=== PATIENT | female | born 1945 | race Caucasian/White ===

== ENCOUNTER 2016-02-27 13:27 | Emergency (ER) | payer OTHER, MEDICARE ==
[2016-02-27 13:32] VITALS: RESP 20
--- NOTE | 2016-02-27 14:55 | CPEKG ---
Heart Rate: 69 RR Interval: 870 P-R Interval: 192 QRSD Interval: 118 QT Interval: 416 QTC Interval: 446 P Edmond: 46 QRS Edmond: -53 T Wave Edmond: 58 EKG Severity - ABNORMAL ECG - EKG Impression: SINUS RHYTHM EKG Impression: INCOMPLETE LEFT BUNDLE BRANCH BLOCK EKG Impression: LEFT VENTRICULAR HYPERTROPHY Electronically Signed By: Dilia Osborn 27-Feb-2016 21:53:05
[2016-02-27] MEDS ORDERED: AZITHROMYCIN IV 500 MG in D5W 250 ML IV ONE (15:04)
--- NOTE | 2016-02-27 15:07 | EDPHY ---
H & P Time Seen by Provider: 02/27/16 14:26 HPI/ROS: CHIEF COMPLAINT: I am sick. HISTORY OF PRESENT ILLNESS: Patient is a 70-year-old male who presents to the emergency department with the flu. Patient states that she has had a stressful last week. Her initially had diverticular bleed. Her return to the emergency department last night was admitted for pneumonia. She feels that she has been sick since 02/18/2016. She developed a cough and bronchitis type symptoms. She was concerned that she had the flu. She was feeling run down and fatigued. She has a cough productive of green sputum. She has increasing shortness of breath. She has mild chest tightness that is diffuse. She has no leg pain or swelling. No nausea or vomiting. No abdominal pain. No dysuria or frequency. REVIEW OF SYSTEMS: My complete review of systems is negative except as mentioned in the HPI. Past Medical/Surgical History: Includes arthritis, hypothyroidism, reflux, hypertension, chronic bronchitis, diabetes Includes: Hysterectomy, cholecystectomy, shoulder surgery, hernia repair, "partial knee replacement" Social History: The patient smokes. She denies drugs or alcohol. Smoking Status: Light smoker Physical Exam: Vitals noted. 36.5, 152/108, 100, 20, 94% on room GENERAL: No acute distress, alert. HEENT: Eyes normal to inspection, normal pharynx, no signs of dehydration. NECK: No thyromegaly, no lymphadenopathy, supple. RESPIRATORY: Clear to auscultation bilaterally, no rales, rhonchi or wheezing. CVS: Regular rate and rhythm, no rubs, murmurs, or gallops. ABDOMEN: Soft, nontender, nondistended, no organomegaly. BACK: Normal to inspection, no CVA tenderness. SKIN: Normal color, no rash, warm, dry. No pallor. EXTREMITIES: No pedal edema, no calf tenderness, no Homans sign or cords, no joint swelling. NEURO/PSYCH: Alert and oriented x3, normal mood and affect Constitutional: Initial Vital Signs Temperature (C) 36.5 C 02/27/16 13:28 Heart Rate 100 02/27/16 13:28 Respiratory Rate 20 02/27/16 13:28 Blood Pressure 152/108 H 02/27/16 13:28 O2 Sat (%) 94 02/27/16 13:28 O2 Delivery Mode Room Air O2 (L/minute) 3 Allergies/Adverse Reactions: ciprofloxacin [From Cipro] Allergy (Intermediate, Verified 09/09/15 17:51) hydromorphone HCl [From Dilaudid] Allergy (Unknown, Verified 09/09/15 17:51) Unknown bupropion HCl [From Wellbutrin] Allergy (Verified 09/09/15 17:51) ciprofloxacin HCl [From Cipro] Allergy (Verified 09/09/15 17:51) codeine [Codeine] Allergy (Verified 09/09/15 17:51) levofloxacin [From Levaquin] Allergy (Verified 09/09/15 17:51) FLU LIKE SX metformin Allergy (Verified 09/09/15 17:51) minocycline [Minocycline] Allergy (Verified 09/09/15 17:51) nitrofurantoin [From Macrobid] Allergy (Verified 09/09/15 17:51) nitrofurantoin macrocrystalline [From Macrobid] Allergy (Verified 09/09/15 17:51 ) potassium clavula *RETIRED-11/06/11 [From Augmentin] Allergy (Verified 11/18/13 22:11) EXTREME DROWSINESS sulfamethoxazole Allergy (Verified 06/24/13 14:44) Home Medications: Medication Instructions Recorded Albuterol Hfa Anes Only [Proair 2 puffs IH QID 09/09/15 Hfa Icu (*)] DILTIAZEM HCL [DILTIAZEM 24HR ER] 180 mg PO 09/09/15 Fluticasone Nasal [Flonase Nasal 2 sprays NASAL DAILY 09/09/15 [place] (RX)] Herbals/Supplements -Info Only 1 ea PO 09/09/15 Hydrocodone/Acetaminophen 09/09/15 [Hydrocodon-Acetaminophen 5-325] Levoxyl 09/09/15 Naproxen 375 mg PO BID 09/09/15 Omeprazole [Prilosec 20 mg] 20 mg PO DAILY 09/09/15 traMADol 09/09/15 Azithromycin 250 mg PO DAILY #4 tablet 02/27/16 Spironolactone 02/27/16 Medical Decision Making ED Course/Re-evaluation: In the emergency department an IV was placed. The patient had laboratory studies, chest x-ray and EKG were performed. Based on the patient's presentation symptoms she was given azithromycin 500 mg IV after blood cultures were drawn. The patient has numerous allergies to medications. Sinus rhythm at 69. Incomplete left bundle-branch block. Left ventricular hypertrophy. No ST or T-wave abnormalities. This EKG is abnormal as read by me. Patient's laboratory studies were were noted. White count is normal. Chemistry panel unremarkable. Chest x-ray: The patient is noted to have an early pneumonia in the left lower lobe I discussed results with the patient. I answered all her questions. I paged Dr. Bello. Patient was given azithromycin as noted above Dr. Bello is aware. Discussed this with the patient. She was adamant that she did not want to come into the hospital. Discussed the reasoning for recommending admission with pneumonia. I explained her diagnosis. After answering all her questions patient did not want to come to the hospital. Dr. Bello saw the patient she refused admission to him as well. Patient was given warnings prior to leaving. She is given a prescription for azithromycin instructed on use. She will return with worsening symptoms. Differential Diagnosis: My differential includes but is not limited to pneumonia, bronchitis, bacteremia , sepsis, dehydration, fatigue, electrolyte abnormality, sugar abnormality, ACS , acute OK - Data Points Laboratory Results: Laboratory Results 02/27/16 15:00 02/27/16 15:00 02/27/16 15:00 WBC 9.39 10^3/uL (3.80-9.50) RBC 4.50 10^6/uL (4.18-5.33) Hgb 14.7 g/dL (12.6-16.3) Hct 44.0 % (38.0-47.0) MCV 97.8 fL (81.5-99.8) MCH 32.7 pg (27.9-34.1) MCHC 33.4 g/dL (32.4-36.7) RDW 13.4 % (11.5-15.2) Plt Count 184 10^3/uL (150-400) MPV 10.9 fL (8.7-11.7) Neut % (Auto) 74.5 H % (39.3-74.2) Lymph % (Auto) 15.7 % (15.0-45.0) [place] % (Auto) 9.2 % (4.5-13.0) Eos % (Auto) 0.1 L % (0.6-7.6) Baso % (Auto) 0.3 % (0.3-1.7) Nucleat RBC Rel Count 0.0 % (0.0-0.2) Absolute Neuts (auto) 7.00 H 10^3/uL (1.70-6.50) Absolute Lymphs (auto) 1.47 10^3/uL (1.00-3.00) Absolute Monos (auto) 0.86 H 10^3/uL (0.30-0.80) Absolute Eos (auto) 0.01 L 10^3/uL (0.03-0.40) Absolute Basos (auto) 0.03 10^3/uL (0.02-0.10) Absolute Nucleated RBC 0.00 10^3/uL (0-0.01) Immature Gran % 0.2 % (0.0-1.1) Immature Gran # 0.02 10^3/uL (0.00-0.10) PT 12.3 SEC (12.0-15.0) INR 0.92 (0.83-1.16) APTT 26.9 SEC (23.0-38.0) VBG Lactic Acid 1.5 mmol/L (0.7-2.1) Sodium 144 mEq/L (134-144) Potassium 4.7 mEq/L (3.5-5.2) Chloride 105 mEq/L (97-110) Carbon Dioxide 27 mEq/l (22-31) Anion Gap 12 mEq/L (8-16) BUN 37 H mg/dL (7-23) Creatinine 0.7 mg/dL (0.6-1.0) Estimated GFR > 60 Glucose 132 H mg/dL (70-100) Calcium 10.1 mg/dL (8.5-10.4) Total Bilirubin 0.6 mg/dL (0.1-1.4) Troponin I 0.014 ng/mL (0-0.034) TSH 0.347 L uIU/mL (0.465-4.680) Medications Given: Discontinued Medications Azithromycin 500 mg/ Dextrose 255 mls @ 255 mls/hr IV EDNOW ONE PRN Reason: Protocol Stop: 02/27/16 16:03 Last Admin: 02/27/16 15:45 Dose: 255 mls Departure - Departure Disposition: Home, Routine, Self-Care Clinical Impression: Shortness of breath Left lower lobe pneumonia Qualifiers: Pneumonia type: due to unspecified organism Qualifier Code: (J18.1) Lobar pneumonia, unspecified organism Condition: Good
[2016-02-27 15:13] LABS: % IMMATURE GRANULYOCYTES 0.2 % (0.0-1.1); ABSOLUTE IMMATURE GRANULOCYTES 0.02 10^3/uL (0.00-0.10); ADD DIFF? NO; ADD MORPH? NO; ADD SCAN? NO; ATYPICAL LYMPHOCYTE FLAG 10 (0-99); FRAGMENT RBC FLAG 0 (0-99); HEMOGLOBIN 14.7 g/dL (12.6-16.3); LEFT SHIFT FLG 0 (0-99); LIPEMIA HEMOLYSIS FLAG 80 (0-99); MEAN CELL HEMOGLOBIN 32.7 pg (27.9-34.1); MEAN CELL HEMOGLOBIN CONCENTR. 33.4 g/dL (32.4-36.7); MEAN CELL VOLUME 97.8 fL (81.5-99.8); MEAN PLATELET VOLUME 10.9 fL (8.7-11.7); PLATELET CLUMPS FLAG 0 (0-99); PLATELET COUNT 184 10^3/uL (150-400); RED CELL DISTRIBUTION WIDTH 13.4 % (11.5-15.2)
--- NOTE | 2016-02-27 15:16 | DX ---
Chest PA Upright and Lateral Views - February 27, 2016, at 2:21 p.m. Clinical History: 70-year-old female resenting to the Emergency Department with shortness of breath, a cough, and a fever for 8 days. Rule out pneumonia. Comparison Study: Chest, dated October 02, 2014. Findings: Bilateral shoulder arthroplasties are present. A metallic necklace is in place, and there are telemetry monitoring lead lines. The cardiac size is within normal limits. There is mild central perihilar bronchial wall thickening. There is some subsegmental atelectasis versus an early infiltrat e in the posteromedial left lower lobe. There is no pleural effusion, peripheral interstitial edema, or pneumothorax. The thoracic vertebral body heights are maintained, and there are multilevel degener ative changes. Impression: Mild perihilar bronchitis with some subsegmental atelectasis versus a possible early inf iltrate in the posteromedial left lower lobe.
[2016-02-27 15:22] LABS: INR 0.92 (0.83-1.16); PROTIME(PATIENT) 12.3 SEC (12.0-15.0)
[2016-02-27 15:23] LABS: ANION GAP 12 mEq/L (8-16); APTT 26.9 SEC (23.0-38.0); BILIRUBIN,TOTAL 0.6 mg/dL (0.1-1.4); CALCIUM 10.1 mg/dL (8.5-10.4); CARBON DIOXIDE 27 mEq/l (22-31); CHLORIDE 105 mEq/L (97-110); CREATININE 0.7 mg/dL (0.6-1.0); GLOMERULAR FILTRATION RATE > 60; GLUCOSE 132 mg/dL (70-100); POTASSIUM 4.7 mEq/L (3.5-5.2); SODIUM 144 mEq/L (134-144)
[2016-02-27 15:35] LABS: TROPONIN I 0.014 ng/mL (0-0.034)
[2016-02-27 17:02] VITALS: BP 132/77; PULSE 78; TEMP 98.4; O2SAT 94
--- NOTE | 2016-02-27 20:26 | GCON ---
[f rep st] CONSULTATION HOSPITALIST CONSULTATION. REFERRING PHYSICIAN: Dilia Osborn MD REASON FOR CONSULTATION: Hospital admission for pneumonia. HISTORY OF PRESENT ILLNESS: This is a 70-year-old female whose was hospitalized yesterday fo r pneumonia and influenza. Presented to the emergency department today with worsening cough. The pa ivan tells me that she developed what she described as cold-like symptoms on February 17. Since t hen she has continued to have a cough that is sometimes productive with grayish-green sputum. Denies any fevers or chills. She has been having some shortness of breath, which brought her into the [facility] department today for further evaluation. PAST MEDICAL HISTORY: 1. Hypothyroidism. 2. Hypertension. 3. Degenerative joint disease. 4. Bronchitis. PAST SURGICAL HISTORY: Cholecystectomy, hysterectomy, right shoulder replacement, breast biopsy, her matthieu repair, left shoulder replacement, partial left knee replacement. MEDICATIONS: Reviewed. Refer to [employer] for details. ALLERGIES: The patient has multiple medication allergies. Refer to [employer] for details. SOCIAL HISTORY: The patient smokes occasionally. She drinks alcohol occasionally. She denies any i llicit drug use. FAMILY HISTORY: Reviewed and noncontributory. REVIEW OF SYSTEMS: Comprehensive 10-point review of systems was done and was negative, except for as mentioned in the HPI. PHYSICAL EXAM: VITAL SIGNS: Blood pressure 132/77, pulse 78, respiratory rate 20, O2 saturation 94% on room air. GENERAL: No acute distress. HEAD: Normocephalic atraumatic. HEART: S1, S2. LUNGS : Clear. No wheezes, rales, or rhonchi. Slight diminished breath sounds in bilateral bases. ABDOM EN: Soft, nontender, nondistended. No guarding or rebound tenderness. Normoactive bowel sounds. E XTREMITIES: No clubbing or cyanosis. NEURO: Cranial nerves 2-12 grossly intact. No focal motor or sensory deficits. DIAGNOSTICS: Chest x-ray showed mild perihilar bronchitis, with some subsegmental atelectasis versus possible early infiltrate in the posterior medial left lower lobe. WBC is 9.39, hemoglobin 14.7, he matocrit 44, platelets 184. Chemistry: Sodium 144, potassium 4.7, chloride 105, CO2 27, BUN 37, cre atinine 0.7, glucose 132. Troponin within normal limits. TSH mildly suppressed at 0.0347. ASSESSMENT AND PLAN: This is a 70-year-old female whose was recently diagnosed with influenz a and pneumonia, who presented to the hospital with general malaise with cough and shortness of breat h, most likely due to recovering influenza versus early pneumonia seen on chest x-ray. PLAN: I was asked by Dr. Osborn to admit the patient to the hospital. After examining the patient I informed the patient that I was planning on admitting her, when she adamantly refused. Given the p atient's overall picture I think it is reasonable for her to be managed as an outpatient. I discusse d the case with Dr. Osborn, who plans to discharge her on azithromycin. Given her multiple allergie s to medications this seems appropriate. The patient was instructed to seek medical attention if her condition worsens or if she develops any worsening shortness of breath or fevers. The patient was n ot tested for influenza; however, she seems to be recovering since her influenza symptoms seem to hav e started over a week ago. /[id number]/MODL
== END 2016-02-27 17:18 | disposition home or self-care (01) ==
LOC: UNDOADMOB 15:34
DX: J18.1 Lobar pneumonia, unspecified organism (principal); I10 Essential (primary) hypertension; E11.9 Type 2 diabetes mellitus without complications; F17.200 Nicotine dependence, unspecified, uncomplicated
CPT/HCPCS: 71020; 93005; 96365; 99285; J0456

== ENCOUNTER → 2017-02-09 | Outpatient (CLI) | payer OTHER, MEDICARE | LOC: BMCIMAGING 13:17 | PROVIDERS: ATTEND Internal Medicine | DX: Z12.31 Encounter for screening mammogram for malignant neoplasm of breast (principal) | CPT/HCPCS: G0202 ==

== ENCOUNTER → 2017-07-20 | Outpatient (CLI) | payer OTHER, MEDICARE | LOC: BHFA 13:00 | PROVIDERS: ATTEND Internal Medicine | DX: E78.00 Pure hypercholesterolemia, unspecified (principal); I10 Essential (primary) hypertension ==

== ENCOUNTER 2017-08-02 05:39 | Inpatient (IN) | payer OTHER, MEDICARE ==
[2017-08-02] MEDS ORDERED: ACETAMINOPHEN 500 MG TAB PO ONE (06:12)
[2017-08-02] MEDS ORDERED: ceFAZolin 2 GM/DEXTROSE 100 ML IV ONE (06:12)
[2017-08-02] MEDS ORDERED: morphINE PF 0.2 MG in SYRINGE INTRATHECAL 1 SYR IT ONE (06:12)
[2017-08-02] MEDS ORDERED: LIDOCAINE 1% 2 ML INJ ID PRN (06:13)
[2017-08-02] MEDS ORDERED: LR 1,000 ML IV ONE (06:13)
[2017-08-02] MEDS ORDERED: THROMBIN (BOVINE) 20,000 UNIT VIAL TP ONE (06:41)
[2017-08-02] MEDS ORDERED: BUPIVACAINE 0.25% 30 ML SDV ONE (06:41)
[2017-08-02] MEDS ORDERED: EPINEPHrine 1 MG/ML INJ ONE (06:41)
[2017-08-02] MEDS ORDERED: CHLORHEXIDINE GLUC HIBICLENS 118 ML BTL TP ONE (06:41)
--- NOTE | 2017-08-02 06:41 | PDANEPAE ---
ANE History of Present Illness lumbar fusion ANE Past Medical History - Cardiovascular History Hx Hypertension: Yes Hx Arrhythmias: Yes Hx Chest Pain: No Hx Coronary Artery / Peripheral Vascular Disease: No Hx CHF / Valvular Disease: No Hx Palpitations: No Cardiovascular History Comment: HAS ALWAYS HAD ABNL EKG'S. HAD STRESS TEST IN ' [facility] [place]. Pt has been told she has irregular heart beat - Pulmonary History Hx COPD: No Hx Asthma/Reactive Airway Disease: No Hx Recent Upper Respiratory Infection: No Hx Oxygen in Use at Home: Yes O2 in Use at Home (L/minute): 3L Hx Sleep Apnea: Yes Sleep Apnea Screening Result - Last Documented: Positive Pulmonary History Comment: SMOKER X 50 Y. ABHISHEK POS. HX SINUS INFECTIONS, LAST 1 -14 - Neurologic History Hx Cerebrovascular Accident: No Hx Seizures: No Hx Dementia: No Neurologic History Comment: ESSENTIAL TREMOR- AGGRIVATED BY STRESS - Endocrine History Hx Diabetes: No Obesity: yes Endocrine History Comment: GOITER- ON SYNTHROID. REACTIVE HYPOGLYCEMIA - Renal History Hx Renal Disorders: No Renal History Comment: HX UTI'S - NONE IN YEARS - Liver History Hx Hepatic Disorders: No - Neurological & Psychiatric Hx Hx Neurological and Psychiatric Disorders: Yes Neurological / Psychiatric History Comment: PTSD. CHRONIC DEPRESSION. ESSENTIAL TREMOR. NEUROPATHY RIGHT LEG - Cancer History Hx Cancer: No - Congenital Disorder History Hx Congenital Disorders: No - GI History Hx Gastrointestinal Disorders: Yes Gastrointestinal History Comment: GERD - Other Health History Other Health History: OSTEOARTHRITIS. BRUISES EASILY. OA INFLAMMATORY. HX FX L ANKLE, TOES L, STRESS FX R TALUS. IMPLANTS DENTAL X5. POST POLYMYALGIA RHEUMATICA. SPODYLOLITHESIS. HX BLOOD CLOT L LEG 70'S. DENTAL IMPLANT TEMPORARY - Chronic Pain History Chronic Pain: Yes (KNEE & BACK & HAND) - Surgical History Prior Surgeries: L SHOULDER ARTHROPLASTY 2013. R SHOULDER REPL . BRYCE . PART HYST. R BREAST STEREOTACTIC BX. L BREAST BX. INC HERNIA REP . partial knee replacement ANE Review of Systems Review of systems is: negative Review of Systems: - Exercise capacity METS (RN): 3 METS ANE Patient History - Allergies Allergies/Adverse Reactions: ciprofloxacin [From Cipro] Allergy (Intermediate, Verified 09/09/15 17:51) hydromorphone HCl [From Dilaudid] Allergy (Unknown, Verified 09/09/15 17:51) Unknown bupropion HCl [From Wellbutrin] Allergy (Verified 09/09/15 17:51) ciprofloxacin HCl [From Cipro] Allergy (Verified 09/09/15 17:51) codeine [Codeine] Allergy (Verified 09/09/15 17:51) fluoxetine [From Prozac] Allergy (Verified 08/02/17 06:35) Abdominal Pain levofloxacin [From Levaquin] Allergy (Verified 09/09/15 17:51) FLU LIKE SX lithium Allergy (Verified 08/02/17 06:35) Abdominal Pain metformin Allergy (Verified 09/09/15 17:51) minocycline [Minocycline] Allergy (Verified 09/09/15 17:51) nitrofurantoin [From Macrobid] Allergy (Verified 09/09/15 17:51) nitrofurantoin macrocrystalline [From Macrobid] Allergy (Verified 09/09/15 17:51 ) oxycodone Allergy (Verified 08/02/17 06:35) Other-Enter Comments potassium clavula *RETIRED-11/06/11 [From Augmentin] Allergy (Verified 11/18/13 22:11) EXTREME DROWSINESS sertraline [From Zoloft] Allergy (Verified 08/02/17 06:35) Abdominal Pain sulfamethoxazole Allergy (Verified 06/24/13 14:44) - Home Medications Home medications: home medication list seen and reviewed Home Medications: Albuterol [Proventil Inhaler HFA (*)] 1 - 2 puffs IH Q4H PRN 07/09/17 [Last Taken 08/02/17] C/E/Zn/Cu/OM3/DHA/EPA/LUT/ZEAX [Preservision Areds 2 Softgel] 1 each PO DAILY18 07/09/17 [Last Taken 07/25/17] Cholecalciferol Vit D3 [Vitamin D3 (*)] 1,000 units PO DAILY 07/09/17 [Last Taken 07/25/17] Cyanocobalamin [Vitamin B12 (*)] 1,000 mcg PO DAILY 07/09/17 [Last Taken ] Diltiazem HCl [Diltiazem ER] 180 mg PO DAILY 07/09/17 [Last Taken 08/02/17 05:00 ] Fluticasone Nasal [Flonase Nasal [place] (RX)] 2 sprays NASAL DAILY 07/09/17 [ Last Taken 08/02/17] Gabapentin [Neurontin Oral Liquid (RX)] 1.5 ml PO HS PRN 07/09/17 [Last Taken ] Hydrocodone/Acetaminophen [[place] 5/325 (*)] 0.5 each PO Q6 PRN 07/09/17 [Last Taken 08/01/17 15:00] Levothyroxine [Synthroid 50 mcg (*)] 50 mcg PO DAILY06 07/09/17 [Last Taken 09/12 05:00] Losartan Potassium [Cozaar 50 mg (*)] 50 mg PO DAILY 07/09/17 [Last Taken 1 Day Ago ~08/01/17] Naproxen Sodium [Naprelan] 375 mg PO BID@07/09/17 [Last Taken 07/25/17] Omeprazole 20 mg PO DAILY 07/09/17 [Last Taken 08/02/17 05:00] Spironolactone [Aldactone 25 MG (*)] 25 mg PO HS 07/09/17 [Last Taken 1 Day Ago ~08/01/17] Topricin Cream 1 humza TP TID 07/09/17 [Last Taken Unknown] Vitamin B Complex [Vitamin B Complex (OTC)] 1 each PO DAILY 07/09/17 [Last Taken 07/25/17] traMADol [Ultram 50 mg (*)] 50 mg PO Q6 07/09/17 [Last Taken 08/01/17 22:00] - Anes Hx Anes Hx: post operative cognitive dysfunction - Smoking Hx Smoking Status: Heavy smoker - Family Anes Hx Family Hx Anesthesia Complications: NONE ANE Labs/Vital Signs - Vital Signs Height: 162.56 cm Weight: 85.275 kg ANE Physical Exam - Airway Neck exam: FROM Mallampati Score: Class 2 Mouth exam: normal dental/mouth exam - Pulmonary Pulmonary: no respiratory distress - Cardiovascular Cardiovascular: regular rate and rhythym - ASA Status ASA Status: III ANE Anesthesia Plan Anesthesia Plan: general endotracheal anesthesia Lines/Monitors: arterial line, additional IV Specialized Airway: video laryngoscope
[2017-08-02] MEDS ORDERED: BACITRACIN 50,000 UNITS/10 ML SYR IRR ONE (06:42)
--- NOTE | 2017-08-02 06:49 | PDHPUP ---
History & Physical Update H&P update statement: This history and physical update is based on an assessment of the patient which was completed after admission or registration (within 24 hours), but prior to the surgery/procedure. H&P update: H&P reviewed & patient examined, no change in patient's condition since H&P completed (Consents signed and site marked. All questions answered.)
--- NOTE | 2017-08-02 06:56 | PDHPUP ---
History & Physical Update H&P update statement: This history and physical update is based on an assessment of the patient which was completed after admission or registration (within 24 hours), but prior to the surgery/procedure. H&P update: H&P reviewed & patient examined, no change in patient's condition since H&P completed (Consents signed and site marked. All questions answered. Reviewed nicotine use and risk of complications, including pseudoarthrosis. She assures me she will quit and is working with her PCP on this. Surgery planned because of weakness in her legs.)
[2017-08-02] MEDS ORDERED: PROPOFOL/EMULSION 500 MG/50 ML BOTTLE IV ONE ×2 (07:01→08:51)
[2017-08-02] MEDS ORDERED: fentaNYL 100 MCG/2 ML INJ ONE ×2 (07:01→11:52)
[2017-08-02] MEDS ORDERED: LIDOCAINE 2% 5 ML SDV ONE (07:08)
[2017-08-02] MEDS ORDERED: ROCURONIUM 50 MG/5 ML VIAL ONE (07:09)
[2017-08-02] MEDS ORDERED: PHENYLEPHRINE HCL 100 MCG/ML SYR ONE (07:36)
[2017-08-02] MEDS ORDERED: DEXAMETHASONE 4 MG/ML VIAL ONE (08:19)
[2017-08-02] MEDS ORDERED: PHENYLEPHRINE 10 MG/ML SDV ONE (08:20)
[2017-08-02] MEDS ORDERED: GABAPENTIN 250 MG/5 ML 30 ML BOTTLE PO PRN (09:34)
[2017-08-02] MEDS ORDERED: ONDANSETRON 4 MG/2 ML VIAL IVP PRN ×2 (09:36→10:55)
[2017-08-02] MEDS ORDERED: BISACODYL 10 MG SUPP PR PRN (09:36)
[2017-08-02] MEDS ORDERED: diphenhydrAMINE 25 MG CAP PO PRN (09:36)
[2017-08-02] MEDS ORDERED: MAGNESIUM HYDROXIDE 30 ML UDCUP PO PRN (09:36)
[2017-08-02] MEDS ORDERED: HYDROCODONE/APAP 5/325 TAB PO PRN ×2 (09:40→10:55)
--- NOTE | 2017-08-02 09:40 | POSTANESTH ---
Post Anesthetic Evaluation Cardiovascular Status: Normal, Stable Respiratory Status: Normal, Stable Level of Consciousness/Mental Status: Can Participate in Eval, Mildly Sleepy, Arousable Pain Control: Adequate, Prn Tx Ordered Nausea/Vomiting Control: Adequate, Prn Tx Ordered Complications Possibly Related to Anesthesia: None Noted
[2017-08-02] MEDS ORDERED: NS 1,000 ML IV SCH (09:45)
--- NOTE | 2017-08-02 09:48 | POSTOPPROG ---
Post Op Note Date of Operation: 08/02/17 Surgeon: Tess Mederos Attendant [employer]: AAKASH Mederos, PAC Anesthesia: GET(General Endotracheal) Pre-op Diagnosis: lumbar stenosis, low back pain, leg pain Post-op Diagnosis: lumbar stenosis, low back pain, leg pain Indication: lumbar stenosis, low back pain, leg pain Procedure: L4-S1 right TLIF and laminectomy; L4-S1 PSF Inf/Abcess present in the surg proc area at time of surgery?: No EBL: 100-500 Drains: Andrea ESCOBAR Addendum - Addendum .: S:low back pain O: NAD A&Ox3 MAEx4 5/5 and equal in BUE and BLE. Incision c/d/i. KRISTI drain serosanginous A/P L4-S1 right TLIF and laminectomy; L4-S1 PSF -Advance diet as tolerated -PT/OT -Optimize pain management -JPx1 -Post op xrays pending -DVT prophx: TEDs, SCDs, Lovenox POD1 -Please notify NS with any change in neuro/motor exam
--- NOTE | 2017-08-02 10:25 | PDMN ---
Medical Necessity Medical necessity: [facility] IP only surgery; cpt 53133 & [id number] L4-S1 TLIF & laminectomy; L4-S1 PSF
[2017-08-02] MEDS ORDERED: ONDANSETRON 4 MG/2 ML VIAL ONE (10:41)
[2017-08-02] MEDS ORDERED: ceFAZolin 1 GM VIAL ONE (10:50)
[2017-08-02] MEDS ORDERED: ACETAMINOPHEN 500 MG TAB PO PRN (10:55)
[2017-08-02] MEDS ORDERED: ALBUTEROL 3 ML DEYVIAL IH PRN (10:55)
[2017-08-02] MEDS ORDERED: DIAZEPAM 5 MG/ML 1 ML SYR IVP PRN (10:55)
[2017-08-02] MEDS ORDERED: LABETALOL HCL 5 MG/ML 20 ML MDV IVP PRN (10:55)
[2017-08-02] MEDS ORDERED: LR 500 ML IV PRN (10:55)
[2017-08-02] MEDS ORDERED: PHENYLEPHRINE HCL 100 MCG/ML SYR IVP PRN (10:55)
[2017-08-02] MEDS ORDERED: epHEDrine SULFATE 10 MG/ML SYR IVP PRN (10:55)
[2017-08-02] MEDS ORDERED: NALOXONE HCL 0.4 MG/ML INJ IVP PRN (10:55)
[2017-08-02] MEDS: fentaNYL 100 MCG/2 ML INJ IVP PRN ×2 (11:54→12:06)
[2017-08-02] MEDS ORDERED: traMADol 50 MG TAB PO SCH (12:00)
[2017-08-02] MEDS ORDERED: HYDROCODONE/APAP 5/325 TAB ONE (12:50)
[2017-08-02] MEDS: METHOCARBAMOL 750 MG TAB PO PRN ×3 (13:48→22:35)
[2017-08-02] MEDS: ACETAMINOPHEN 500 MG TAB PO SCH ×2 (13:48→20:59)
[2017-08-02] MEDS: POLYETHYLENE GLYCOL 3350 17 GM PKT PO PRN (13:58)
[2017-08-02] MEDS: SENNOSIDES/DOCUSATE SODIUM TAB PO SCH ×2 (14:07→21:02)
[2017-08-02] MEDS: ceFAZolin 2 GM/DEXTROSE 100 ML IV SCH ×2 (16:27→22:36)
--- NOTE | 2017-08-02 17:12 | GOP ---
[f rep st] OPERATIVE REPORT DATE OF OPERATION: 08/02/2017 SURGEON: Chris Smith MD ABALONE FISHERMAN: Tess Mederos PA-C. ANESTHESIA: General. PREOPERATIVE DIAGNOSIS: 1. L4 through S1 severe spinal stenosis. 2. L4-L5, L5-S1 spondylolisthesis. 3. Low back pain. 4. Lower extremity radiculopathy and right lower extremity weakness. 5. Treatment refractory to nonoperative intervention. POSTOPERATIVE DIAGNOSIS: 1. L4 through S1 severe spinal stenosis. 2. L4-L5, L5-S1 spondylolisthesis. 3. Low back pain. 4. Lower extremity radiculopathy and right lower extremity weakness. 5. Treatment refractory to nonoperative intervention. PROCEDURES PERFORMED: 1. Posterior arthrodesis with approach to L4, L5, and S1. 2. Posterolateral fusion with bilateral pedicle screw placement into L4, L5, and S1 from the [employer] 4.75 system. 3. Decompressive laminectomy with bilateral medial facetectomies, L4-L5, L5-S1 with left-sided L4-L5 and L5-S1 foraminotomies. 4. Right-sided L4-5 transforaminal lumbar interbody fusion with a 22 x 8 mm titanium coated PEEK cage filled with morselized autograft and allograft. 5. Right-sided L5-S1 transforaminal lumbar interbody fusion with a 26 x 6 mm titanium coated PEEK cage filled with morselized autograft and allograft. 6. Posterolateral fusion on the left between L4 and S1 with morselized autograft and allograft. 7. Use of intraoperative 3D Stealth Navigation. 8. Use of intraoperative fluoroscopy, less 1-hour physician time. 9. Use of neuromonitoring. 10. Use of operating microscope. 11. Injection of preservative-free intrathecal narcotics. COMPLICATIONS: None. FINDINGS: per imaging SPECIMENS: None. ESTIMATED BLOOD LOSS: 200 mL. INDICATIONS: The patient is a 72-year-old woman who unfortunately developed low back pain with progressive lower extremity radiculopathy and right lower extremity weakness. She had evidence of grade 1/grade 2 spondylolisthesis at L4 -5 and L5-S1. After discussion of risks, benefits, and treatment alternatives, we decided to proceed forth with surgery as described above. DESCRIPTION OF PROCEDURE: The patient was brought to the operating theater and underwent general endotracheal anesthesia without complications. She had Venodynes, KIM hose and the appropriate lines placed by Anesthesia. She was flipped prone onto the Andrea table. All bony processes inspected and padded. The lower lumbar region was prepped and draped in the usual sterile surgical fashion. A time-out was completed per protocol. The patient had antibiotics within 1-hour of incision. Using lateral fluoroscopy and spinal needle, we picked our entry point at the L4 through S1 levels. This was marked in the midline. The incision was infiltrated with Marcaine with epinephrine. The incision was taken down with the scalpel blade and using monopolar, taken down to the midline through the lumbodorsal fascia. A subperiosteal dissection was carried to the transverse process of L4, L5, and S1. Care was taken to preserve the bilateral L3-L4 facet joint. We attached the 3D Stealth Navigation clamp to the spinous process of L5 and completed a 3D Stealth navigation spin. Using 3D Stealth Navigation we placed the ship's pilot holes for the bilateral pedicle screws at L4, L5 , and S1. We had a very difficult time approaching the left-sided L4 pedicle screw and needed more lateral to medial trajectory. I therefore made a smaller horizontal incision out laterally and tunneled out a percutaneous screw through this using the 3D navigation system. We then placed 6.5 x 50 mm screw on the left at L4, 6.5 x 45 mm screw on the right at L4, and left at L5 and left at S1 , and 6.5 x 55 mm screw on the right at L5, and 6.5 x 40 mm screw on the right S1, all from the [employer] 4.75 System. Another 3D Stealth Navigation spin demonstrated good placement of the hardware. The microscope was brought into the field to assist with microscopic dissection and to maintain illumination and magnification. Using a combination of the bur tip on the drill bit, Kerrison punches and Leksell rongeur, we completed decompressive laminectomy with bilateral medial facetectomies, L4-L5 and L5-S1. Also completed a foraminotomy on the left at L4-L5 and L5-S1 until the frame felt well decompressed on manual palpation. We then completed an aggressive facetectomy on the right side at L4-L5 and L5-S1. We moved up to L4-L5 where we distracted the interspace and completed right L4-5 diskectomy. We prepared the cartilaginous endplates and measured interbody space. We then placed a 22 x 8 mm titanium coated PEEK cage filled with morselized autograft and allograft anteriorly and toward the midline. We packed additional morcellized autograft into the disk space for the interbody fusion. We let down the distraction and moved down to the L5-S1 level where we distracted the L5-S1 disk space. We completed a right-sided L5-S1 diskectomy and prepared the cartilaginous endplates. We measured interbody space and placed a 26 x 6 mm titanium coated PEEK cage filled with morselized autograft and allograft anteriorly and toward the midline. We packed additional morcellized autograft into the disk space for the interbody fusion. We let down the distraction and decorticated the bone on the left side between L4 and S1. The wound was irrigated copiously with bacitracin irrigation. We placed 2- lordotic rods into the heads of the screws between L4 and S1 and secured them down with cap screws which were tightened per the construction administrator's setting. We injected preservative-free intrathecal narcotics. We placed morselized autograft and allograft on the left side between L4 and S1 for the posterolateral fusion. A drain was left in the subfascial space and the wound then closed in multiple layers using Vicryl sutures for the deep layers and Dermabond for the skin. The patient's wounds were dressed sterilely. She was then flipped supine onto the transfer cart. She was awakened, extubated , taken to the recovery room in stable condition. There were no complications and no noted changes on neuromonitoring throughout the procedure. /[id number]/MODL MTDD
[2017-08-02] MEDS: traMADol 50 MG TAB PO SCH (17:18)
[2017-08-02] MEDS: FAMOTIDINE 20 MG TAB PO SCH (21:00)
[2017-08-02] MEDS: SPIRONOLACTONE 25 MG TAB PO SCH (21:01)
[2017-08-03] MEDS: traMADol 50 MG TAB PO SCH ×5 (01:47→23:13)
[2017-08-03] MEDS: HYDROCODONE/APAP 10/325 TAB PO PRN ×4 (04:05→18:22)
[2017-08-03] MEDS: LEVOTHYROXINE 50 MCG TAB PO SCH (05:37)
[2017-08-03] MEDS: ALBUTEROL 60 PUFFS/8 GM MDI IH PRN (05:38)
[2017-08-03] MEDS: METHOCARBAMOL 750 MG TAB PO PRN ×2 (05:40→10:42)
[2017-08-03] MEDS: ACETAMINOPHEN 500 MG TAB PO SCH ×2 (05:41→13:36)
--- NOTE | 2017-08-03 06:31 | NEUSURGPN ---
Assessment/Plan: 72y/o female s/p L4-S1 right TLIF and laminectomy; L4-S1 PSF POD1 -PT/OT -Optimize pain management -JPx1 -Post op xrays pending -DVT prophx: TEDs, SCDs, Lovenox POD1 -Please notify NS with any change in neuro/motor exam Subjective: low back pain, tolerable with medications Objective: O: NAD A&Ox3 MAEx4 5/5 and equal in BUE and BLE. Incision c/d/i. KRISTI drain serosanguineous Catheter Insertion Date: 08/02/17 - Physician Patient Seen by : Sarah Neurosurgery Physical Exam - Vitals, I&O, Labs I and O 08/02/17 08/03/17 08/04/17 05:59 05:59 05:59 Intake Total 2200 Output Total 2815 Balance -615 Weight 85.275 kg Intake: IV Intake (ml) 2200 Output: Urine (ml) 2100 Catheter 2100 Estimated Blood Loss (ml) 200 KRISTI Drain Output (ml) 515 #1 Back Andrea Browne 515 Vital Signs Temp Pulse Resp BP Pulse Ox 36.7 C 74 18 144/63 H 91 L 08/03/17 04:08 08/03/17 04:08 08/03/17 04:08 08/03/17 04:08 08/03/17 04:08 ICD10 Worksheet Patient Problems: Problems Problem Status Onset Osteoarthritis of left shoulder Acute
[2017-08-03] MEDS: SENNOSIDES/DOCUSATE SODIUM TAB PO SCH ×2 (07:58→21:53)
[2017-08-03] MEDS: DILTIAZEM CD 180 MG CAP PO SCH (07:59)
[2017-08-03] MEDS: OMEPRAZOLE 20MG CAPSULE PO SCH (08:00)
[2017-08-03] MEDS: POLYETHYLENE GLYCOL 3350 17 GM PKT PO PRN (08:03)
[2017-08-03] MEDS: FAMOTIDINE 20 MG TAB PO SCH ×2 (08:06→21:51)
[2017-08-03] MEDS ORDERED: LOSARTAN POTASSIUM 50 MG TAB PO SCH (09:00)
[2017-08-03] MEDS: FLUTICASONE NASAL 120 SPRAYS/16 GM MDI EACHNARE SCH (09:14)
[2017-08-03] MEDS: ENOXAPARIN 40 MG/0.4 ML SYR SC SCH (13:08)
--- NOTE | 2017-08-03 16:27 | ASMTCMCOM ---
CM Note CM Note Notes: Pt s/p L4 TLIF. PT recommending home care. She would like [facility] as her has had them and it's a good fit. 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 She will need RN to start, and will discuss PT/OT with [facility] once care is established. She currently has a KRISTI drain, d/c date unknown at this time. [facility] notified and referral sent via [facility]. CM will follow. Date Signed: 08/03/2017 04:27 PM Electronically Signed By:DHAVAL Nair
[2017-08-03] MEDS: SPIRONOLACTONE 25 MG TAB PO SCH (21:50)
[2017-08-03] MEDS: LOSARTAN POTASSIUM 50 MG TAB PO SCH (21:51)
[2017-08-04] MEDS: METHOCARBAMOL 750 MG TAB PO PRN ×3 (00:13→09:31)
[2017-08-04] MEDS: HYDROCODONE/APAP 10/325 TAB PO PRN ×5 (00:13→20:55)
[2017-08-04] MEDS: FAMOTIDINE 20 MG TAB PO SCH ×3 (01:06→19:28)
[2017-08-04] MEDS: traMADol 50 MG TAB PO SCH ×4 (05:45→23:12)
[2017-08-04] MEDS: LEVOTHYROXINE 50 MCG TAB PO SCH (05:45)
[2017-08-04] MEDS: ALBUTEROL 60 PUFFS/8 GM MDI IH PRN ×2 (08:23→16:26)
[2017-08-04] MEDS: SENNOSIDES/DOCUSATE SODIUM TAB PO SCH ×2 (08:30→20:54)
[2017-08-04] MEDS: POLYETHYLENE GLYCOL 3350 17 GM PKT PO PRN (08:30)
[2017-08-04] MEDS: ONDANSETRON DISINTEGRATING 4 MG TAB PO PRN ×3 (08:36→19:28)
[2017-08-04] MEDS: ENOXAPARIN 40 MG/0.4 ML SYR SC SCH (08:46)
[2017-08-04] MEDS: FLUTICASONE NASAL 120 SPRAYS/16 GM MDI EACHNARE SCH ×2 (09:00→11:58)
[2017-08-04] MEDS: LACTULOSE 20 GM/30 ML UDCUP PO PRN (09:34)
[2017-08-04] MEDS: DILTIAZEM CD 180 MG CAP PO SCH (09:36)
[2017-08-04] MEDS: OMEPRAZOLE 20MG CAPSULE PO SCH (09:38)
--- NOTE | 2017-08-04 13:03 | NEUSURGPN ---
Date of Surgery: 08/02/17 Post Op Day: 2 Assessment/Plan: 72y/o female s/p L4-S1 right TLIF and laminectomy; L4-S1 PSF POD2. Post op xrays with stable hardware. -PT/OT -antiemetics if needed for nausea -Optimize pain management -JPx1 continue -DVT prophx: TEDs, SCDs, Lovenox POD1 -Please notify NS with any change in neuro/motor exam dispo planning -plan for [facility] tomorrow if able Subjective: can hardly get up and move d/t pain. surpised at how painful the surgery has been. Would like to DC home when she is ready to do. also with some N/V with breakfast. Objective: VSS AAOx4 EOMI, PEARLA speech clear and fluent No facial droop MAEx4, BLE decreased effort, antigravity, strength appears full SILT JPx1 215 out so far today incision dressed CDI. Catheter Insertion Date: 08/02/17 - Physician Discussed Patient with : Sarah Neurosurgery Physical Exam - Vitals, I&O, Labs I and O 08/03/17 08/04/17 08/05/17 05:59 05:59 05:59 Intake Total 2200 1300 Output Total 3315 1680 250 Balance -1115 -380 -250 Weight 85.275 kg 85.275 kg Intake: Oral (ml) 1300 IV Intake (ml) 2200 Output: Urine (ml) 2600 1425 100 Catheter 2600 200 Toilet 1225 100 Estimated Blood Loss (ml) 200 Emesis (ml) 150 KRITSI Drain Output (ml) 515 255 #1 Back Andrea Browne 515 255 Other: Intake Quantity Yes Sufficient Number of Voids Toilet 1 1 Vital Signs Temp Pulse Resp BP Pulse Ox 36.8 C 77 16 150/72 H 93 08/04/17 08:00 08/04/17 08:00 08/04/17 08:00 08/04/17 08:00 08/04/17 08:00 ICD10 Worksheet Patient Problems: Problems Problem Status Onset Osteoarthritis of left shoulder Acute
[2017-08-04] MEDS ORDERED: NS W/ 20 KCl/L 1,000 ML IV SCH ×2 (16:30→18:00)
[2017-08-04 18:18] LABS: PLATELET COUNT 141 10^3/uL (150-400)
[2017-08-04] MEDS: LOSARTAN POTASSIUM 50 MG TAB PO SCH (20:55)
[2017-08-04] MEDS: SPIRONOLACTONE 25 MG TAB PO SCH (20:55)
[2017-08-05] MEDS: HYDROCODONE/APAP 10/325 TAB PO PRN ×6 (01:57→22:14)
[2017-08-05] MEDS: ONDANSETRON DISINTEGRATING 4 MG TAB PO PRN (01:58)
[2017-08-05] MEDS: LEVOTHYROXINE 50 MCG TAB PO SCH (05:53)
[2017-08-05] MEDS: traMADol 50 MG TAB PO SCH ×3 (05:53→17:56)
[2017-08-05] MEDS: OMEPRAZOLE 20MG CAPSULE PO SCH (08:05)
[2017-08-05] MEDS: DILTIAZEM CD 180 MG CAP PO SCH (08:06)
[2017-08-05] MEDS: FLUTICASONE NASAL 120 SPRAYS/16 GM MDI EACHNARE SCH (08:08)
--- NOTE | 2017-08-05 09:54 | NEUSURGPN ---
Date of Surgery: 08/02/17 Post Op Day: 3 Assessment/Plan: 72y/o female s/p L4-S1 right TLIF and laminectomy; L4-S1 PSF POD2. Post op xrays with stable hardware. -PT/OT -antiemetics if needed for nausea -Optimize pain management, held robaxin and seemed to improve overall status, but increased pain, consider low dose valium if needed. -JPx1 out this am. brace when OOB -DVT prophx: TEDs, SCDs, Lovenox POD1 -Please notify NS with any change in neuro/motor exam dispo planning -plan for [facility] tomorrow if not able, push for SNF Dw Dr. Smith Subjective: doing much better this am but still in alot of pain. Wants to stay one more day to get and work with PT. Has lots of stairs at home. burning in feet has been better since surgery. Nausea/vomiting stopped with holding Robaxin. Objective: NAD, AAOx3 VSS EOMI, PEARLA no facial droop MAEx4, 5/5 BLE SILT incision CDI JPx1 5ml out, cant in drain. Urinary Catheter in Place: No Catheter Insertion Date: 08/02/17 - Physician Discussed Patient with Dr.: Smith Neurosurgery Physical Exam - Vitals, I&O, Labs I and O 08/04/17 08/05/17 08/06/17 05:59 05:59 05:59 Intake Total 1300 1650 Output Total 1680 1255 100 Balance -380 395 -100 Weight 85.275 kg Intake: Oral (ml) 1300 900 IV Infused (ml) 750 NS W/ 20 KCl/L 1,000 ml @ 750 75 mls/hr IV CONT MICHELLE Rx #:[id number] Output: Urine (ml) 1425 1100 100 Catheter 200 Toilet 1225 1100 100 Emesis (ml) 150 KRISTI Drain Output (ml) 255 5 #1 Back Andrea Browne 255 5 Other: Intake Quantity Yes Sufficient Number of Voids Toilet 1 1 1 Vital Signs Temp Pulse Resp BP Pulse Ox 37.0 C 93 16 127/62 H 92 08/05/17 07:40 08/05/17 07:40 08/05/17 07:40 08/05/17 07:40 08/05/17 07:40 Laboratory Results 08/04/17 16:05 08/04/17 16:05 ICD10 Worksheet Patient Problems: Problems Problem Status Onset Osteoarthritis of left shoulder Acute
[2017-08-05] MEDS: FAMOTIDINE 20 MG TAB PO SCH ×2 (09:56→20:35)
[2017-08-05] MEDS: ENOXAPARIN 40 MG/0.4 ML SYR SC SCH (09:59)
[2017-08-05] MEDS: POLYETHYLENE GLYCOL 3350 17 GM PKT PO PRN (12:01)
[2017-08-05] MEDS: SENNOSIDES/DOCUSATE SODIUM TAB PO SCH ×2 (12:01→20:35)
[2017-08-05] MEDS ORDERED: MAGNESIUM CITRATE 300 ML BOTTLE PO ONE (14:26)
[2017-08-05] MEDS: SPIRONOLACTONE 25 MG TAB PO SCH (20:34)
[2017-08-05] MEDS: LOSARTAN POTASSIUM 50 MG TAB PO SCH (20:48)
[2017-08-06] MEDS: HYDROCODONE/APAP 10/325 TAB PO PRN ×5 (02:17→19:29)
[2017-08-06] MEDS: LEVOTHYROXINE 50 MCG TAB PO SCH (04:47)
[2017-08-06] MEDS: traMADol 50 MG TAB PO SCH ×5 (05:40→23:15)
[2017-08-06] MEDS: SENNOSIDES/DOCUSATE SODIUM TAB PO SCH ×2 (08:35→21:22)
[2017-08-06] MEDS: ENOXAPARIN 40 MG/0.4 ML SYR SC SCH (08:36)
[2017-08-06] MEDS: DILTIAZEM CD 180 MG CAP PO SCH (08:36)
[2017-08-06] MEDS: POLYETHYLENE GLYCOL 3350 17 GM PKT PO PRN (08:36)
[2017-08-06] MEDS: LACTULOSE 20 GM/30 ML UDCUP PO PRN (08:36)
[2017-08-06] MEDS: FAMOTIDINE 20 MG TAB PO SCH ×2 (08:38→21:18)
[2017-08-06] MEDS: OMEPRAZOLE 20MG CAPSULE PO SCH (08:38)
[2017-08-06] MEDS: ALBUTEROL 60 PUFFS/8 GM MDI IH PRN (08:45)
--- NOTE | 2017-08-06 09:16 | NEUSURGPN ---
Assessment/Plan: 72y/o female s/p L4-S1 right TLIF and laminectomy; L4-S1 PSF POD4. Post op xrays with stable hardware. -PT/OT -antiemetics if needed for nausea -Optimize pain management, will try zanaflex this morning -brace when OOB -DVT prophx: TEDs, SCDs, Lovenox POD1 -Will increase bowel regiment -Please notify NS with any change in neuro/motor exam dispo planning- SNF likely Subjective: Muscle spasms and nausea that she states may be related to her constipation. Objective: NAD, AAOx3 MAEx4, 06/30 BLE incision CDI Catheter Insertion Date: 08/02/17 - Physician Discussed Patient with Dr.: Sarah Neurosurgery Physical Exam - Vitals, I&O, Labs I and O 08/05/17 08/06/17 08/07/17 05:59 05:59 05:59 Intake Total 1650 850 Output Total 1255 300 Balance 395 550 Intake: Oral (ml) 900 850 IV Infused (ml) 750 NS W/ 20 KCl/L 1,000 ml @ 750 75 mls/hr IV CONT MICHELLE Rx #:[id number] Output: Urine (ml) 1100 200 Toilet 1100 200 Emesis (ml) 150 100 KRISTI Drain Output (ml) 5 #1 Back Andrea Browne 5 Other: Intake Quantity Yes Sufficient Number of Voids Toilet 1 1 2 Number of Stools Toilet 1 Number of Emesis 1 Occurrences Vital Signs Temp Pulse Resp BP Pulse Ox 37.2 C 71 20 111/58 L 98 08/06/17 08:00 08/06/17 08:00 08/06/17 08:00 08/06/17 08:00 08/06/17 08:00 Laboratory Results 08/04/17 16:05 08/04/17 16:05 ICD10 Worksheet Patient Problems: Problems Problem Status Onset Osteoarthritis of left shoulder Acute
[2017-08-06] MEDS: ONDANSETRON DISINTEGRATING 4 MG TAB PO PRN (12:51)
--- NOTE | 2017-08-06 15:31 | ASMTCMCOM ---
CM Note CM Note Notes: Today pt wants to consider SNF; pt accepted at first choice [facility]. Likely d/c tomorrow. CM to follow. Date Signed: 08/06/2017 03:31 PM Electronically Signed By:DHAVAL Chase
[2017-08-06] MEDS: SPIRONOLACTONE 25 MG TAB PO SCH (21:18)
[2017-08-06] MEDS: LOSARTAN POTASSIUM 50 MG TAB PO SCH (21:19)
[2017-08-06 23:18] VITALS: BP 89/68
--- NOTE | 2017-08-07 22:31 | ASMTCMCOM ---
CM Note CM Note Notes: Pt medically stable for d/c to [facility]. [facility] downtime interagency filled out by PRINCESS Woods and Soraida ESCOBAR, SHAWN completed paper med rec. Interagency and med rec faxed to and sent by fax attach in [employer]. Laura with scheduled WC transport for 1700. PRINCESS Woods to call report. Date Signed: 08/07/2017 04:20 PM Electronically Signed By:DHAVAL Chase
--- NOTE | 2017-08-08 11:46 | ASDISCHSUM ---
Discharge Information Plan Status:SNF Medically Cleared to Leave: Discharge Date:08/07/2017 05:10 PM D/C Disposition:[facility] ADT D/C Disposition:[facility] Projected Discharge Date:08/06/2017 11:00 AM Transportation at D/C:Wheelchair Van Discharge Delay Reason: Follow-Up Date:08/06/2017 11:00 AM Discharge Slot: Final Diagnosis: Placement Information Referral Type:*Home Health Care Services Referral ID:[id number] Provider Name: Address 1: Phone Number: Address 2: Fax Number: City: Selection Factors: State: Referral Type:*Fpc/SNF Referral ID:[id number] Provider Name:[facility] Address 1:[address] Address 2: City:[place] Selection Factors: State:[place] Patient Contact Information Contact Name:SINDY Relationship: Address:[address] Work Phone: City:[place] Alternate Phone: State/Zip Code:[place] [address] Email: Financial Information Financial Class:Medicare Primary Plan Desc:MEDICARE INPATIENT Primary Plan Number:[id number] Secondary Plan Desc:[employer]/MDR SUPPLEMENT Secondary Plan Number:[id number] Assessment Information [facility] CM Progress Note CM Note CM Note Notes: Pt s/p L4 TLIF. PT recommending home care. She would like [facility] as her has had them and it's a good fit. 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 She will need RN to start, and will discuss PT/OT with [facility] once care is established. She currently has a KRISTI drain, d/c date unknown at this time. [facility] notified and referral sent via [employer]. CM will follow. Date Signed: 08/03/2017 04:27 PM Electronically Signed By:DHAVAL Nair [facility] CM Progress Note CM Note CM Note Notes: Today pt wants to consider SNF; pt accepted at first choice [facility]. Likely d/c tomorrow. CM to follow. Date Signed: 08/06/2017 03:31 PM Electronically Signed By:DHAVAL Chase [facility] CM Progress Note CM Note CM Note Notes: Pt medically stable for d/c to [facility] and Soraida ESCOBAR, SHAWN completed paper med rec. Interagency and med rec faxed to and sent by fax attach in [employer]. Laura with scheduled transport for 1700. PRINCESS Woods to call report. Date Signed: 08/07/2017 04:20 PM Electronically Signed By:DHAVAL Chase Intervention Information
--- NOTE | 2017-08-08 14:57 | NEUSURGPN ---
[facility] Patient Name: BETH OSEI Rpt#: [id number] Unit Number: [id number] Attending/ER Physician: Chris Smith MD Patient Type: ADM IN Adm Date/Source: 08/02/17 PHY Discharge Date: Primary Carrier: MEDICARE INPATIENT Neurosurgical Progress Note Assessment/Plan: 72y/o female s/p L4-S1 right TLIF and laminectomy; L4-S1 PSF POD#5. Post op xrays with stable hardware. -PT/OT -antiemetics if needed for nausea -Optimize pain management- continue current regimen. Recommend changing position - pt did not sleep well in bed encourage up to chair, ice. -brace when OOB -DVT prophx: TEDs, SCDs, On Lovenox -Please notify NS with any change in neuro/motor exam -Dispo planning- DC to SNF likely today -D/w Dr Smith Subjective: Pt resting in bed, did not sleep well. C/o cramping pain in right greater than left leg/thighs Objective: Groggy but awakens easily/oriented VSS NAD MAEx4 Motor 5/5 BLE +LT Urinary Catheter in Place: No Catheter Insertion Date: 08/02/17 - Physician Discussed Patient with : Sarah Neurosurgery Physical Exam - Vitals, I O, Labs I and O 08/06/17 08/07/17 08/08/17 05:59 05:59 05:59 Intake Total 850 900 Output Total 300 50 Balance 550 850 Intake: Oral (ml) 850 900 Output: Urine (ml) 200 50 Bedside Commode 50 Toilet 200 Emesis (ml) 100 Other: Intake Quantity Yes Sufficient Number of Voids Bedside Commode 1 Toilet 1 1 Number of Stools Bedside Commode 1 Toilet 1 Number of Emesis 1 Occurrences Vital Signs Temp Pulse Resp BP Pulse Ox 37.1 C 72 17 89/68 L 97 08/06/17 23:17 08/06/17 23:17 08/06/17 23:17 08/06/17 23:17 08/06/17 23:17 Laboratory Results 08/04/17 16:05 08/04/17 16:05 ICD10 Worksheet Patient Problems: Problems Problem Status Onset Osteoarthritis of left shoulder Acute *This report may have been compiled using a voice recognition system, and might contain typographical errors and blanks.* Soarida ESCOBAR 08/07/17 0748 <Electronically signed by Soraida ESCOBAR> 0739 T: FREER 08/07/1739 CC:
--- NOTE | 2017-08-08 14:58 | NEUSURGPN ---
[facility] Patient Name: BETH OSEI Rpt#: [id number] Unit Number: [id number] Attending/ER Physician: Chris Smith MD Patient Type: ADM IN Adm Date/Source: 08/02/17 PHY Discharge Date: Primary Carrier: MEDICARE INPATIENT Neurosurgical Progress Note Date of Surgery: 08/02/17 Post Op Day: 2 Assessment/Plan: 72y/o female s/p L4-S1 right TLIF and laminectomy; L4-S1 PSF POD2. Post op xrays with stable hardware. -PT/OT -antiemetics if needed for nausea -Optimize pain management -JPx1 continue -DVT prophx: TEDs, SCDs, Lovenox POD1 -Please notify NS with any change in neuro/motor exam dispo planning -plan for [facility] tomorrow if able Subjective: can hardly get up and move d/t pain. surpised at how painful the surgery has been. Would like to DC home when she is ready to do. also with some N/V with breakfast. Objective: VSS AAOx4 EOMI, PEARLA speech clear and fluent No facial droop MAEx4, BLE decreased effort, antigravity, strength appears full SILT JPx1 215 out so far today incision dressed CDI. Catheter Insertion Date: 08/02/17 - Physician Discussed Patient with : Sarah Neurosurgery Physical Exam - Vitals, I O, Labs I and O 08/03/17 08/04/17 08/05/17 05:59 05:59 05:59 Intake Total 2200 1300 Output Total 3315 1680 250 Balance -1115 -380 -250 Weight 85.275 kg 85.275 kg Intake: Oral (ml) 1300 IV Intake (ml) 2200 Output: Urine (ml) 2600 1425 100 Catheter 2600 200 Toilet 1225 100 Estimated Blood Loss (ml) 200 Emesis (ml) 150 KRISTI Drain Output (ml) 515 255 #1 Back Andrea Browne 515 255 Other: Intake Quantity Yes Sufficient Number of Voids Toilet 1 1 Vital Signs Temp Pulse Resp BP Pulse Ox 36.8 C 77 16 150/72 H 93 08/04/17 08:00 08/04/17 08:00 08/04/17 08:00 08/04/17 08:00 08/04/17 08:00 ICD10 Worksheet Patient Problems: Problems Problem Status Onset Osteoarthritis of left shoulder Acute *This report may have been compiled using a voice recognition system, and might contain typographical errors and blanks.* Jero PEACE 08/04/17 1306 <Electronically signed by Jero PEACE> Chris Smith MD 08/07/17 3513 <Electronically signed by Chris Smith MD> 1259 T: MONTEZ 08/04/17 1259 CC:
--- NOTE | 2017-08-08 14:58 | NEUSURGPN ---
[facility] Patient Name: BETH OSEI Rpt#: [id number] Unit Number: [id number] Attending/ER Physician: Chris Smith MD Patient Type: ADM IN Adm Date/Source: 08/02/17 PHY Discharge Date: Primary Carrier: MEDICARE INPATIENT Neurosurgical Progress Note Date of Surgery: 08/02/17 Post Op Day: 3 Assessment/Plan: 72y/o female s/p L4-S1 right TLIF and laminectomy; L4-S1 PSF POD2. Post op xrays with stable hardware. -PT/OT -antiemetics if needed for nausea -Optimize pain management, held robaxin and seemed to improve overall status, but increased pain, consider low dose valium if needed. -JPx1 out this am. brace when OOB -DVT prophx: TEDs, SCDs, Lovenox POD1 -Please notify NS with any change in neuro/motor exam dispo planning -plan for [facility] tomorrow if not able, push for SNF Dw Dr. Smith Subjective: doing much better this am but still in alot of pain. Wants to stay one more day to get and work with PT. Has lots of stairs at home. burning in feet has been better since surgery. Nausea/ vomiting stopped with holding Robaxin. Objective: NAD, AAOx3 VSS EOMI, PEARLA no facial droop MAEx4, 5/5 BLE SILT incision CDI JPx1 5ml out, cant in drain. Urinary Catheter in Place: No Catheter Insertion Date: 08/02/17 - Physician Discussed Patient with : Sarah Neurosurgery Physical Exam - Vitals, I O, Labs I and O 08/04/17 08/05/17 08/06/17 05:59 05:59 05:59 Intake Total 1300 1650 Output Total 1680 1255 100 Balance -380 395 -100 Weight 85.275 kg Intake: Oral (ml) 1300 900 IV Infused (ml) 750 NS W/ 20 KCl/L 1,000 ml @ 750 75 mls/hr IV CONT MICHELLE Rx #:[id number] Output: Urine (ml) 1425 1100 100 Catheter 200 Toilet 1225 1100 100 Emesis (ml) 150 KRISTI Drain Output (ml) 255 5 #1 Back Andrea Browne 255 5 Other: Intake Quantity Yes Sufficient Number of Voids Toilet 1 1 1 Vital Signs Temp Pulse Resp BP Pulse Ox 37.0 C 93 16 127/62 H 92 08/05/17 07:40 08/05/17 07:40 08/05/17 07:40 08/05/17 07:40 08/05/17 07:40 Laboratory Results 08/04/17 16:05 08/04/17 16:05 ICD10 Worksheet Patient Problems: Problems Problem Status Onset Osteoarthritis of left shoulder Acute *This report may have been compiled using a voice recognition system, and might contain typographical errors and blanks.* Jero PEACE 08/05/1755 <Electronically signed by Jero PEACE> Chris Smith MD 08/07/1713 <Electronically signed by Chris Smith MD> 9 T: MONTEZ 08/05/17949 CC:
== END 2017-08-07 17:10 | DRG 455 ==
LOC: F3N 05:39
PROVIDERS: ADMIT Neurological Surgery; ATTEND Neurological Surgery
PROC: 00NY0ZZ Release Lumbar Spinal Cord, Open Approach (ICD-10-PCS; principal; 2017-08-02 07:15)
PROC: 0SG0071 Fusion of Lumbar Vertebral Joint with Autologous Tissue Substitute, Posterior Approach, Posterior Column, Open Approach (ICD-10-PCS; principal; 2017-08-02 07:15)
PROC: 0SG3071 Fusion of Lumbosacral Joint with Autologous Tissue Substitute, Posterior Approach, Posterior Column, Open Approach (ICD-10-PCS; principal; 2017-08-02 07:15)
PROC: 0SG00AJ Fusion of Lumbar Vertebral Joint with Interbody Fusion Device, Posterior Approach, Anterior Column, Open Approach (ICD-10-PCS; principal; 2017-08-02 07:15)
PROC: 4A1004G Monitoring of Central Nervous Electrical Activity, Intraoperative, Open Approach (ICD-10-PCS; principal; 2017-08-02 07:15)
PROC: 8E0WXBZ Computer Assisted Procedure of Trunk Region (ICD-10-PCS; principal; 2017-08-02 07:15)
PROC: 0SG30AJ Fusion of Lumbosacral Joint with Interbody Fusion Device, Posterior Approach, Anterior Column, Open Approach (ICD-10-PCS; principal; 2017-08-02 07:15)
DX: M48.062 Spinal stenosis, lumbar region with neurogenic claudication (principal); M48.07 Spinal stenosis, lumbosacral region; M43.16 Spondylolisthesis, lumbar region; M54.16 Radiculopathy, lumbar region; I10 Essential (primary) hypertension; G47.33 Obstructive sleep apnea (adult) (pediatric); G25.0 Essential tremor; E04.9 Nontoxic goiter, unspecified; E16.1 Other hypoglycemia; K21.9 Gastro-esophageal reflux disease without esophagitis; F43.10 Post-traumatic stress disorder, unspecified
CPT/HCPCS: 97110-GP; 97116-GP; 97161-GP; 97166-GO; 97530-GO; 97530-GP; 97535-GO; C1713; G8978-GP-CJ; G8979-GP-CI; G8987-GO-CJ; G8988-GO-CI; J0171; J0690; J1100; J1650; J2270; J2274; J2370; J2405; J2704; J3010

== ENCOUNTER → 2017-11-28 | Outpatient (CLI) | payer OTHER, MEDICARE | LOC: BMCIMAGING 12:23 | PROVIDERS: ATTEND Physician Assistant | DX: Z47.1 Aftercare following joint replacement surgery (principal); Z96.652 Presence of left artificial knee joint ==

== ENCOUNTER → 2018-01-02 | Outpatient (CLI) | payer OTHER, MEDICARE | LOC: BMCIMAGING 15:28 | PROVIDERS: ATTEND Family Medicine | DX: R22.41 Localized swelling, mass and lump, right lower limb (principal) ==

== ENCOUNTER → 2018-02-06 | Outpatient (CLI) | payer OTHER, MEDICARE | LOC: BMCIMAGING 13:51 | PROVIDERS: ATTEND Orthopaedic Surgery | DX: M25.552 Pain in left hip (principal) ==